=== PATIENT | male | born 1955 | race Caucasian/White ===

== ENCOUNTER 2018-06-12 07:06 | Day surgery (SDC) | payer BC ==
[~2018-06-12 07:06] MED LIST: Lactated Ringers 1,000 ML IV SCH
[2018-06-12] MEDS ORDERED: Bupivacaine 0.5% 10 ML SDV ONE (07:27)
[2018-06-12] MEDS ORDERED: Acetaminophen/HYDROcodone 325-5 MG Tab PO PRN (08:00)
[2018-06-12] MEDS ORDERED: ceFAZolin 2 GM in Premix Bag 1 BAG IV SCH (08:00)
--- NOTE | 2018-06-12 08:05 | PCM.PREANE ---
Preanesthetic Assessment - Anesthesia/Transfusion/Family Hx Anesthesia History: Prior Anesthesia Reaction Other Type of Anesthesia Reaction Comment: "N&V and headache after anesthesia" Transfusion History: No Prior Transfusion(s) Intubation History: Unknown - Physical Assessment O2 Sat by Pulse Oximetry: 96 Respiratory Rate: 16 Vital Signs: Last Vital Signs Temp 96.8 F 06/12/18 07:27 Pulse 79 06/12/18 07:27 Resp 16 06/12/18 07:27 BP 174/100 H 06/12/18 07:27 Pulse Ox 96 06/12/18 07:27 Height: 5 ft 9 in Weight: 220 lb - Allergies Allergies/Adverse Reactions: Allergies Allergy/AdvReac Type Severity Reaction Status Date / Time No Known Allergies Allergy Verified 06/07/18 08:58 PreAnesthesia Questionnaire HEENT History: Reports: Other (See Below) Other HEENT History: wears glasses Cardiovascular History: Reports: Hypertension Gastrointestinal History: Reports: None Genitourinary History: Reports: None Musculoskeletal History: Reports: Arthritis, Osteoarthritis Psychiatric History: Reports: None Endocrine/Metabolic History: Reports: Hypothyroidism, Obesity/BMI 30+ Hematologic History: Reports: None Immunologic History: Reports: None Oncologic (Cancer) History: Reports: None Dermatologic History: Reports: None - Past Surgical History Head Surgeries/Procedures: Reports: None HEENT Surgical History: Reports: Naso-Sinus Surgery GI Surgical History: Reports: Cholecystectomy Male Surgical History: Reports: Vasectomy Musculoskeletal Surgical History: Reports: Knee Replacement Other Musculoskeletal Surgeries/Procedures:: partial left knee replacement, total rt knee replacement, Dermatological Surgical History: Reports: Other (See Below) - SUBSTANCE USE Smoking Status *Q: Former Smoker Recreational Drug Use History: No - HOME MEDS Home Medications: Home Meds Anastrozole [Arimidex] 1 mg PO ASDIRECTED 03/17/18 [History] Aspirin 325 mg PO ASDIRECTED PRN 03/17/18 [History] Cholecalciferol (Vitamin D3) [Vitamin D3] 1 tab PO DAILY 03/17/18 [History] Fish Oil/[place]-3 Fatty Acids [Fish Oil 1,000 MG] 1 tab PO DAILY 03/17/18 [ History] Glucosamine HCl [Glucosamine] 1 tab PO DAILY 03/17/18 [History] Losartan Potassium 100 mg PO DAILY 03/17/18 [History] Lutein 20 mg PO DAILY 03/17/18 [History] Metoprolol Succinate 50 mg PO BEDTIME 03/17/18 [History] Naproxen Sodium [Aleve] 1 tab PO TID PRN 03/17/18 [History] Thyroid [[place] Thyroid] 60 mg PO DAILY 03/17/18 [History] hydroCHLOROthiazide [Hydrochlorothiazide] 12.5 mg PO DAILY 03/17/18 [History] Testosterone Cypionate 1 injection IM ASDIRECTED 06/07/18 [History] - CURRENT (IN HOUSE) MEDS Current Meds: Current Medications Hydrocodone Bitart/Acetaminophen ([place] 325-5 Mg) 1 - 2 tab PO Q4H PRN PRN Reason: Pain Cefazolin Sodium/Dextrose 2 gm (/ Premix) 50 mls @ 100 mls/hr IV ONCALL [facility] ANTONIO Lactated Ringer's (Ringers, Lactated) 1,000 mls @ 100 mls/hr IV ASDIRECTED [facility] Last Admin: 06/12/18 07:32 Dose: 100 mls/hr Discontinued Medications Bupivacaine HCl (Sensorcaine-Mpf 0.5%) Confirm Administered Dose 10 ml .ROUTE .STK-MED ONE Stop: 06/12/18 07:28
--- NOTE | 2018-06-12 08:29 | PCM.PREANE ---
Preanesthetic Assessment - Anesthesia/Transfusion/Family Hx Anesthesia History: Prior Anesthesia Reaction Type of Anesthesia Reaction: Excessive Nausea/Vomiting Other Type of Anesthesia Reaction Comment: "N&V and headache after anesthesia" Family History of Anesthesia Reaction: No Transfusion History: No Prior Transfusion(s) Intubation History: Unknown - Review of Systems General: No Symptoms Pulmonary: No Symptoms Cardiovascular: No Symptoms Gastrointestinal: No Symptoms Neurological: No Symptoms Other: Reports: None - Physical Assessment NPO Status Date: 06/11/18 O2 Sat by Pulse Oximetry: 96 Respiratory Rate: 16 Vital Signs: Last Vital Signs Temp 96.8 F 06/12/18 07:27 Pulse 79 06/12/18 07:27 Resp 16 06/12/18 07:27 BP 174/100 H 06/12/18 07:27 Pulse Ox 96 06/12/18 07:27 Height: 5 ft 9 in Weight: 99.79 kg ASA Class: 2 Mental Status: Alert & Oriented x3 Airway Class: Mallampati = 1 Dentition: Reports: Normal Dentition ROM/Head Extension: Full Lungs: Clear to Auscultation, Normal Respiratory Effort Cardiovascular: Regular Rate, Regular Rhythm - Allergies Allergies/Adverse Reactions: Allergies Allergy/AdvReac Type Severity Reaction Status Date / Time No Known Allergies Allergy Verified 06/07/18 08:58 - Blood Blood Available: No - Anesthesia Plan Pre-Op Medication Ordered: None - Acknowledgements Anesthesia Type Planned: General Anesthesia Pt an Appropriate Candidate for the Planned Anesthesia: Yes Alternatives and Risks of Anesthesia Discussed w Pt/Guardian: Yes Pt/Guardian Understands and Agrees with Anesthesia Plan: Yes Additional Comments: PMH: hx of ponv- none after last surgery-anesthesia record pulled for review, htn, thyroid and testosterone replacement PLAN: [email or web address] PreAnesthesia Questionnaire HEENT History: Reports: Other (See Below) Other HEENT History: wears glasses Cardiovascular History: Reports: Hypertension Gastrointestinal History: Reports: None Genitourinary History: Reports: None Musculoskeletal History: Reports: Arthritis, Osteoarthritis Psychiatric History: Reports: None Endocrine/Metabolic History: Reports: Hypothyroidism, Obesity/BMI 30+ Hematologic History: Reports: None Immunologic History: Reports: None Oncologic (Cancer) History: Reports: None Dermatologic History: Reports: None - Past Surgical History Head Surgeries/Procedures: Reports: None HEENT Surgical History: Reports: Naso-Sinus Surgery GI Surgical History: Reports: Cholecystectomy Male Surgical History: Reports: Vasectomy Musculoskeletal Surgical History: Reports: Knee Replacement Other Musculoskeletal Surgeries/Procedures:: partial left knee replacement, total rt knee replacement, Dermatological Surgical History: Reports: Other (See Below) - SUBSTANCE USE Smoking Status *Q: Former Smoker Recreational Drug Use History: No - HOME MEDS Home Medications: Home Meds Anastrozole [Arimidex] 1 mg PO ASDIRECTED 03/17/18 [History] Aspirin 325 mg PO ASDIRECTED PRN 03/17/18 [History] Cholecalciferol (Vitamin D3) [Vitamin D3] 1 tab PO DAILY 03/17/18 [History] Fish Oil/[place]-3 Fatty Acids [Fish Oil 1,000 MG] 1 tab PO DAILY 03/17/18 [ History] Glucosamine HCl [Glucosamine] 1 tab PO DAILY 03/17/18 [History] Losartan Potassium 100 mg PO DAILY 03/17/18 [History] Lutein 20 mg PO DAILY 03/17/18 [History] Metoprolol Succinate 50 mg PO BEDTIME 03/17/18 [History] Naproxen Sodium [Aleve] 1 tab PO TID PRN 03/17/18 [History] Thyroid [[place] Thyroid] 60 mg PO DAILY 03/17/18 [History] hydroCHLOROthiazide [Hydrochlorothiazide] 12.5 mg PO DAILY 03/17/18 [History] Testosterone Cypionate 1 injection IM ASDIRECTED 06/07/18 [History] - CURRENT (IN HOUSE) MEDS Current Meds: Current Medications Hydrocodone Bitart/Acetaminophen ([place] 325-5 Mg) 1 - 2 tab PO Q4H PRN PRN Reason: Pain Cefazolin Sodium/Dextrose 2 gm (/ Premix) 50 mls @ 100 mls/hr IV ONCALL [facility] Lactated Ringer's (Ringers, Lactated) 1,000 mls @ 100 mls/hr IV ASDIRECTED [facility] Last Admin: 06/12/18 07:32 Dose: 100 mls/hr Discontinued Medications Bupivacaine HCl (Sensorcaine-Mpf 0.5%) Confirm Administered Dose 10 ml .ROUTE .STK-MED ONE Stop: 06/12/18 07:28
[2018-06-12] MEDS ORDERED: Lidocaine 2% 5 ML SDV ONE (08:40)
[2018-06-12] MEDS ORDERED: Ondansetron 4 MG/2 ML SDV ONE (08:40)
[2018-06-12] MEDS ORDERED: Propofol 200 MG/20 ML SDV ONE (08:41)
[2018-06-12] MEDS ORDERED: fentaNYL 250 MCG/5 ML SDV ONE (08:41)
[2018-06-12] MEDS ORDERED: Midazolam 1 MG/ML 2 ML SDV ONE (08:41)
[2018-06-12] MEDS ORDERED: diphenhydrAMINE 50 MG/ML SDV ONE (08:42)
[2018-06-12] MEDS ORDERED: ceFAZolin/Dextrose,Iso-Osmotic 2 GM/50 ML Duplex Bag IV ONE (08:42)
[2018-06-12] MEDS ORDERED: Ketorolac 30 MG/ML SDV ONE (08:42)
--- NOTE | 2018-06-12 09:39 | PCM.OPNOTE ---
- General Post-Op/Procedure Note Date of Surgery/Procedure: 06/12/18 Operative Procedure(s): Excision lipoma left shoulder Post-Op Diagnosis: Lipoma left shoulder Anesthesia Technique: General LMA Primary Surgeon: Micaela Lala Bus Dispatcher Interstate: Amy Collado Bus Dispatcher Interstate: Ann Yin in mLs: 10 Condition: Good Free Text/Narrative:: #[id number]
[2018-06-12] MEDS ORDERED: fentaNYL 100 MCG/2 ML SDV IVPUSH PRN (10:03)
--- NOTE | 2018-06-12 10:17 | PCM.POSTAN ---
POST ANESTHESIA ASSESSMENT - MENTAL STATUS Mental Status: Alert, Oriented - RESPIRATORY Respiratory Status: Respiratory Rate WNL - CARDIOVASCULAR CV Status: Pulse Rate WNL - GASTROINTESTINAL GI Status: No Symptoms - PAIN Pain Score: 0 - POST OP HYDRATION Hydration Status: Adequate & Stable - OBSERVATIONS Free Text/Narrative:: The patient tolerated the procedure well. There were no apparent anesthetic complications at this time. Discharge home per criteria.
--- NOTE | 2018-06-12 11:45 | PCM48HPAN ---
Post Anesthesia Note - EVALUATION WITHIN 48HRS OF ANESTHETIC Vital Signs in Normal Range: Yes Patient Participated in Evaluation: Yes Respiratory Function Stable: Yes Airway Patent: Yes Cardiovascular Function Stable: Yes Hydration Status Stable: Yes Pain Control Satisfactory: Yes Nausea and Vomiting Control Satisfactory: Yes Mental Status Recovered: Yes Resp Rate: 16
--- NOTE | 2018-06-12 15:34 | OR ---
SURGEON: Micaela Lala MD DATE OF PROCEDURE: 06/12/2018 PREOPERATIVE DIAGNOSIS: Left anterior shoulder lipoma. POSTOPERATIVE DIAGNOSIS: Left anterior shoulder lipoma. PROCEDURE: Excision lipoma, left anterior shoulder. ASSISTANTS: 1. Amy Collado PA-C. 2. ROMY Moura. ANESTHESIA: General. ESTIMATED BLOOD LOSS: 5 mL. TOURNIQUET TIME: Zero minutes. COMPLICATIONS: None. DVT PROPHYLAXIS: Not indicated. IMPLANTS USED: None. BRIEF HISTORY: David is a 62-year-old male who has noticed a prominence along the anterior aspect of his shoulder. He has had multiple other lipomas removed from other parts of his body in the past. Upon examination, I did recommend surgical excision. The risks and goals of the procedure were discussed with the patient and were documented preoperatively. He agreed to proceed. DESCRIPTION OF PROCEDURE: The patient was properly identified and brought to the operating room. He was transferred from the OR cart and placed on the operating room table in supine position. General anesthesia was administered. After adequate anesthesia was obtained, the head of the bed was elevated approximately 30 degrees. The left upper extremity and anterior shoulder were prepped in standard fashion using ChloraPrep solution. It was then sterilely draped. A time-out was performed to ensure correct site and procedure. Preoperative antibiotics were given. The surgical site had been marked preoperatively. An incision was made centered over the lipoma. Subcutaneous tissues were incised. A small portion of the deltoid muscle overlaid the lipoma. This was incised and the deltoid muscle was retracted. The lipoma was easily identified. It shelled out of the deltoid muscle quite easily and no remaining fat remained. The lipoma was sent for pathologic evaluation. The wound was then copiously irrigated with saline solution. A loose Vicryl suture was used to re- approximate the muscle belly. Subcutaneous tissues were closed with 2-0 Vicryl, and the skin was closed with a running 4-0 Monocryl suture. Steri-Strips and Benzoin were applied. Xeroform gauze was placed over the wound and a bulky dressing was applied. He was awakened from his anesthetic and transferred back to the operating room cart. He was brought to recovery room in stable condition. All needle and sponge counts were correct. EFRAIN / KATELYNN /[id number]
== END 2018-06-12 11:03 | disposition home or self-care (01) ==
LOC: MW.SDS 07:06
PROVIDERS: ATTEND Orthopaedic Surgery
DX: D17.9 Benign lipomatous neoplasm, unspecified (principal); I10 Essential (primary) hypertension; E03.9 Hypothyroidism, unspecified; E66.9 Obesity, unspecified; Z87.891 Personal history of nicotine dependence; Z79.899 Other long term (current) drug therapy
CPT/HCPCS: 23076; 88304; J0690; J1200; J1885; J2001; J2250; J2405; J2704; J3010; J3490; J7120; 00400

== ENCOUNTER 2018-08-21 07:21 | Inpatient (IN) | payer BC ==
[~2018-08-21 07:21] MED LIST changes: +Famotidine 20 MG/2 ML SDV IVPUSH SCH; -Lactated Ringers 1,000 ML IV SCH; +Ropivacaine 49.25 ML, Ketorolac 30 MG, EPINEPHrine 0.5 MG, cloNIDine 80 MCG in Sodium C... INJECT SCH; +Scopolamine 1.5 MG Transdermal Patch TRDERM SCH; +Tranexamic Acid 2,000 MG in Sodium Chloride 0.9% 100 ML IV ONE
[2018-08-21] MEDS ORDERED: ceFAZolin 2 GM in Premix Bag 1 BAG IV SCH (08:00)
[2018-08-21] MEDS: Lactated Ringers 1,000 ML IV SCH ×3 (08:00→23:54)
[2018-08-21] MEDS: Acetaminophen 1,000 MG in Premix Bag 1 BAG IV SCH ×4 (08:08→20:52)
--- NOTE | 2018-08-21 08:44 | PCM.PREANE ---
Preanesthetic Assessment - Anesthesia/Transfusion/Family Hx Anesthesia History: Prior Anesthesia Reaction Other Type of Anesthesia Reaction Comment: "N&V and headache after anesthesia" Transfusion History: No Prior Transfusion(s) Intubation History: Unknown - Review of Systems General: No Symptoms Pulmonary: No Symptoms Cardiovascular: No Symptoms Gastrointestinal: No Symptoms Neurological: No Symptoms Other: Reports: None - Physical Assessment O2 Sat by Pulse Oximetry: 96 Respiratory Rate: 16 Vital Signs: Last Vital Signs Temp 36.0 C 08/21/18 08:00 Pulse 78 08/21/18 08:00 Resp 16 08/21/18 08:00 BP 124/73 08/21/18 08:00 Pulse Ox 96 08/21/18 08:00 Height: 1.75 m Weight: 99.79 kg ASA Class: 2 Airway Class: Mallampati = 3 Dentition: Reports: Normal Dentition Thyro-Mental Finger Breadths: 3 Mouth Opening Finger Breadths: 3 ROM/Head Extension: Full Lungs: Clear to Auscultation, Normal Respiratory Effort Cardiovascular: Regular Rate, Regular Rhythm - Allergies Allergies/Adverse Reactions: Allergies Allergy/AdvReac Type Severity Reaction Status Date / Time No Known Allergies Allergy Verified 08/16/18 07:58 - Anesthesia Plan Pre-Op Medication Ordered: Other (SCOPOLAMINE PATCH ) - Acknowledgements Anesthesia Type Planned: Spinal (back pain, and possible conversion to general anesthesia discussed if surgery is prolonged or spinal fails. ) Pt an Appropriate Candidate for the Planned Anesthesia: Yes Alternatives and Risks of Anesthesia Discussed w Pt/Guardian: Yes Pt/Guardian Understands and Agrees with Anesthesia Plan: Yes PreAnesthesia Questionnaire HEENT History: Reports: Allergic Rhinitis, Hard of Hearing (hearing loss, left ear. not evaluated.), Other (See Below) Other HEENT History: wears glasses Cardiovascular History: Reports: Hypertension, Other (See Below) ("history of abnormal stress test, ef 50%, no ischemia". ekg: nsr with probable left atrial enlargement. Repeat TTE shows EF 55-50%. Patient was evaluated and cleared by cardiology.) Respiratory History: Reports: None, Other (See Below) (cxr. no acute cardiopulmonary disease) Gastrointestinal History: Reports: None Genitourinary History: Reports: Chronic Renal Insuffiency (Chronic Kidney Disease Stage 3) Musculoskeletal History: Reports: Arthritis, Osteoarthritis Neurological History: Reports: None Psychiatric History: Reports: None Endocrine/Metabolic History: Reports: Hypothyroidism, Obesity/BMI 30+ Hematologic History: Reports: None Immunologic History: Reports: None Oncologic (Cancer) History: Reports: None Dermatologic History: Reports: None - Past Surgical History Head Surgeries/Procedures: Reports: None HEENT Surgical History: Reports: Naso-Sinus Surgery Cardiovascular Surgical History: Reports: None Respiratory Surgical History: Reports: None GI Surgical History: Reports: Cholecystectomy Male Surgical History: Reports: Vasectomy Endocrine Surgical History: Reports: None Neurological Surgical History: Reports: None Musculoskeletal Surgical History: Reports: Knee Replacement Other Musculoskeletal Surgeries/Procedures:: hillary TKA Oncologic Surgical History: Reports: None Dermatological Surgical History: Reports: Other (See Below) Other Surgical History Comment: lipoma removals by dr siegel - SUBSTANCE USE Smoking Status *Q: Former Smoker Days Per Week of Alcohol Use: 1 (etoh "occasional") Recreational Drug Use History: No - HOME MEDS Home Medications: Home Meds Anastrozole [Arimidex] 1 mg PO ASDIRECTED 03/17/18 [History] Cholecalciferol (Vitamin D3) [Vitamin D3] 1 tab PO DAILY 03/17/18 [History] Fish Oil/[place]-3 Fatty Acids [Fish Oil 1,000 MG] 1 tab PO DAILY 03/17/18 [ History] Glucosamine HCl [Glucosamine] 1 tab PO DAILY 03/17/18 [History] Losartan Potassium 100 mg PO DAILY 03/17/18 [History] Lutein 20 mg PO DAILY 03/17/18 [History] Metoprolol Succinate 50 mg PO BEDTIME 03/17/18 [History] Naproxen Sodium [Aleve] 1 tab PO TID PRN 03/17/18 [History] Thyroid [[place] Thyroid] 60 mg PO DAILY 03/17/18 [History] hydroCHLOROthiazide [Hydrochlorothiazide] 12.5 mg PO DAILY 03/17/18 [History] Testosterone Cypionate 1 injection IM ASDIRECTED 06/07/18 [History] Aspirin [Lo-Dose Aspirin EC] 81 mg PO DAILY 08/16/18 [History] - CURRENT (IN HOUSE) MEDS Current Meds: Current Medications Famotidine (Pepcid) 40 mg IVPUSH ONARRIVE [facility]CO ANTONIO Last Admin: 08/21/18 08:25 Dose: 40 mg Acetaminophen 1,000 mg/ Premix 100 mls @ 400 mls/hr IV ONARRIVE [facility] ANTONIO Last Admin: 08/21/18 08:08 Dose: 400 mls/hr Cefazolin Sodium/Dextrose 2 gm (/ Premix) 50 mls @ 100 mls/hr IV ONCALL [facility] Ropivacaine 49.25 ml/Ketorolac Tromethamine 30 mg/Epinephrine HCl 0.5 mg/ Clonidine HCl 80 mcg/ Sodium Chloride 100 mls @ 50 mls/sec INJECT ASDIRECTED [facility] Lactated Ringer's (Ringers, Lactated) 1,000 mls @ 100 mls/hr IV ASDIRECTED [facility] Last Admin: 08/21/18 08:00 Dose: 100 mls/hr Scopolamine (Transderm-Scop) 1.5 mg TRDERM ONARRIVE [facility] Last Admin: 08/21/18 08:21 Dose: 1.5 mg Discontinued Medications Tranexamic Acid 2,000 mg/ (Sodium Chloride) 120 mls @ 600 mls/hr IV ASDIRECTED ONE Stop: 08/21/18 06:11
[2018-08-21] MEDS ORDERED: ceFAZolin/Dextrose,Iso-Osmotic 2 GM/50 ML Duplex Bag IV ONE (09:12)
[2018-08-21] MEDS ORDERED: fentaNYL 100 MCG/2 ML SDV ONE (09:12)
[2018-08-21] MEDS ORDERED: Propofol 200 MG/20 ML SDV ONE ×3 (09:12→11:27)
--- NOTE | 2018-08-21 09:45 | PCM.OPNOTE ---
- General Post-Op/Procedure Note Date of Surgery/Procedure: 08/21/18 Operative Procedure(s): Revision left TKA Post-Op Diagnosis: painful left unicompartmental medial arthroplasty knee Anesthesia Technique: Moderate Sedation, Spinal Primary Surgeon: Micaela Lala Drafter Electronic: Amy Collado Drafter Electronic: Ann Yin EBL in mLs: 50 Condition: Good Free Text/Narrative:: tt=see nursing record #[id number]
[2018-08-21] MEDS ORDERED: Midazolam 1 MG/ML 2 ML SDV ONE (09:58)
[2018-08-21] MEDS ORDERED: Phenylephrine/Normal Saline 100 MCG/ML 10 ML Syringe ONE (10:10)
[2018-08-21] MEDS ORDERED: ePHEDrine 50 MG/ML SDV ONE (10:25)
[2018-08-21] MEDS ORDERED: Ondansetron 4 MG/2 ML SDV ONE (10:37)
[2018-08-21] MEDS ORDERED: EPINEPHrine 1:10,000 1 MG/10 ML Syringe IVPUSH PRN (11:06)
[2018-08-21] MEDS ORDERED: Naloxone 0.4 MG/ML Syringe IVPUSH PRN (11:06)
[2018-08-21] MEDS ORDERED: Atropine 0.1 MG/ML 10 ML Syringe IVPUSH PRN ×2 (11:06)
[2018-08-21] MEDS ORDERED: fentaNYL 100 MCG/2 ML SDV IVPUSH PRN (11:06)
[2018-08-21] MEDS ORDERED: 50% Dextrose in Water 50 ML Syringe IVPUSH PRN (11:06)
[2018-08-21] MEDS ORDERED: Albuterol 0.083% 2.5 MG/3 ML Neb Soln NEB PRN (11:06)
[2018-08-21] MEDS ORDERED: Aluminum Hydroxide/Magnesium Hydroxide/Simethicone Susp 30 ML Cup PO PRN (11:38)
[2018-08-21] MEDS ORDERED: Docusate Sodium 100 MG Cap PO PRN (11:38)
[2018-08-21] MEDS ORDERED: diphenhydrAMINE 25 MG Cap PO PRN (11:38)
[2018-08-21] MEDS ORDERED: Bisacodyl 10 MG Supp RECTAL PRN (11:38)
[2018-08-21] MEDS ORDERED: Morphine PF 30 MG/30 ML PCA Vial IV PRN (11:38)
[2018-08-21] MEDS ORDERED: Ondansetron 4 MG/2 ML SDV IVPUSH PRN (11:38)
[2018-08-21] MEDS ORDERED: Sodium Chloride 0.9% 10 ML Syringe FLUSH PRN (11:41)
[2018-08-21] MEDS ORDERED: Sodium Chloride 0.9% 2.5 ML Syringe FLUSH PRN (11:41)
[2018-08-21] MEDS ORDERED: Anastrozole 1 MG Tab PO SCH (11:45)
--- NOTE | 2018-08-21 12:48 | PCM.POSTAN ---
POST ANESTHESIA ASSESSMENT - MENTAL STATUS Mental Status: Alert, Oriented - RESPIRATORY Respiratory Status: Respiratory Rate WNL, Airway Patent, O2 Saturation Stable - CARDIOVASCULAR CV Status: Pulse Rate WNL, Blood Pressure Stable - GASTROINTESTINAL GI Status: No Symptoms - PAIN Pain Score: 0 - POST OP HYDRATION Hydration Status: Adequate & Stable - OBSERVATIONS Free Text/Narrative:: The patient tolerated the procedure well. There were no apparent anesthetic complications at this time. Discharge to floor per criteria.
--- NOTE | 2018-08-21 13:45 | PCM.CONS ---
<Marita Aguilar M - Last Filed: 08/21/18 13:40> H&P History of Present Illness - General Date of Service: 08/21/18 Admit Problem/Dx: Admission Diagnosis/Problem Admission Diagnosis/Problem Knee pain Source of Information: Patient, Significant Other ( at bedside) History Limitations: Reports: No Limitations - History of Present Illness Initial Comments - Free Text/Narative: This 62 year old male with pmh of HTN presented to for L TKA with Dr Lala. Hospitalist service consulted for medical management for HTN. He recently arrived to Med?surg unit, he is alert and oriented, doing well. is at bedside. He denies chest pain or SOB. NO other concerns. No pain currently to knee. Slowly regaining feeling to legs. He was cleared by cardiology prior to surgery due to abnormal stress test in the past. Stress test and ECHO was repeated with Dr Rock, cardiology in [place]. Per reports, evaluations were nearly unremarkable, Some LVH noted on ECHO. EF 55-60%. He denies ever having chest pain or SOB. He denies DAKOTAH. Reports he has also been told his hgb is elevated, cardiology told him to drink more fluids or donate blood. He reports he is NOT diabetic. He takes Metformin for weight loss, this was prescribed from a bariatric doctor. PCP, Paulette Bauer EARLY CHILDHOOD COORDINATOR Cardiology, Dr Rock. - Related Data Allergies/Adverse Reactions: Allergies Allergy/AdvReac Type Severity Reaction Status Date / Time No Known Allergies Allergy Verified 08/16/18 07:58 Home Medications: Home Meds Anastrozole [Arimidex] 1 mg PO Q14D 03/17/18 [History] Cholecalciferol (Vitamin D3) [Vitamin D3] 5,000 unit PO DAILY 03/17/18 [History] Fish Oil/[place]-3 Fatty Acids [Fish Oil 1,000 MG] 1 gm PO DAILY 03/17/18 [History ] Glucosamine HCl [Glucosamine] 1 tab PO DAILY 03/17/18 [History] Losartan Potassium 100 mg PO DAILY 03/17/18 [History] Lutein 20 mg PO DAILY 03/17/18 [History] Metoprolol Succinate 50 mg PO BEDTIME 03/17/18 [History] Naproxen Sodium [Aleve] 220 mg PO TID PRN 03/17/18 [History] Thyroid [Lilly Thyroid] 60 mg PO DAILY 03/17/18 [History] hydroCHLOROthiazide [Hydrochlorothiazide] 12.5 mg PO DAILY 03/17/18 [History] Testosterone Cypionate 1 injection IM ASDIRECTED 06/07/18 [History] Aspirin [Lo-Dose Aspirin EC] 81 mg PO DAILY 08/16/18 [History] metFORMIN HCl [Metformin HCl] 500 mg PO BIDMEALS 08/21/18 [History] Past Medical History HEENT History: Reports: Allergic Rhinitis, Hard of Hearing (hearing loss, left ear. not evaluated.), Other (See Below) Other HEENT History: wears glasses Cardiovascular History: Reports: Hypertension Respiratory History: Reports: None. Denies: Asthma, COPD Gastrointestinal History: Reports: None. Denies: GERD, GI Bleed Genitourinary History: Reports: Chronic Renal Insuffiency (Chronic Kidney Disease Stage 3) Musculoskeletal History: Reports: Arthritis, Osteoarthritis Neurological History: Reports: None Psychiatric History: Reports: None Endocrine/Metabolic History: Reports: Hypothyroidism, Obesity/BMI 30+ Hematologic History: Reports: None Immunologic History: Reports: None Oncologic (Cancer) History: Reports: None Dermatologic History: Reports: None - Past Surgical History Head Surgeries/Procedures: Reports: None HEENT Surgical History: Reports: Naso-Sinus Surgery Cardiovascular Surgical History: Reports: None Respiratory Surgical History: Reports: None GI Surgical History: Reports: Cholecystectomy Male Surgical History: Reports: Vasectomy Endocrine Surgical History: Reports: None Neurological Surgical History: Reports: None Musculoskeletal Surgical History: Reports: Knee Replacement (R) Other Musculoskeletal Surgeries/Procedures:: hillary TKA Oncologic Surgical History: Reports: None Dermatological Surgical History: Reports: Other (See Below) Other Surgical History Comment: lipoma removals by dr lala Social & Family History - Tobacco Use Smoking Status *Q: Former Smoker Years of Tobacco use: 10 Used Tobacco, but Quit: Yes Month/Year Tobacco Last Used: quit smoking over 20 years ago - Alcohol Use Alcohol Use History: No Days Per Week of Alcohol Use: 1 (etoh "occasional") - Recreational Drug Use Recreational Drug Use: No - Living Situation & Occupation Living situation: Reports: Occupation: Employed H&P Review of Systems - Review of Systems: Review Of Systems: See Below General: Reports: No Symptoms. Denies: Fever, Chills, Malaise, Weakness HEENT: Reports: No Symptoms. Denies: Contact Lenses, Headaches, Vertigo Pulmonary: Reports: No Symptoms. Denies: Shortness of Breath Cardiovascular: Reports: No Symptoms. Denies: Chest Pain, Orthopnea, Edema Gastrointestinal: Reports: No Symptoms. Denies: Abdominal Pain, Diarrhea, Decreased Appetite, Distension, Nausea, Vomiting Genitourinary: Reports: No Symptoms. Denies: Dysuria, Frequency, Burning Musculoskeletal: Reports: No Symptoms. Denies: Joint Pain Skin: Reports: No Symptoms Psychiatric: Reports: No Symptoms Neurological: Reports: No Symptoms Hematologic/Lymphatic: Reports: No Symptoms Immunologic: Reports: No Symptoms Exam - Exam Exam: See Below - Vital Signs Vital Signs: Last Vital Signs Temp 97.7 F 08/21/18 12:06 Pulse 76 08/21/18 12:41 Resp 14 08/21/18 12:41 BP 117/73 08/21/18 12:41 Pulse Ox 93 L 08/21/18 12:41 Weight: 99.79 kg - Exam General: Alert, Oriented, Cooperative HEENT: Conjunctiva Clear, Mucosa Moist & [place], Posterior Pharynx Clear Lungs: Clear to Auscultation, Normal Respiratory Effort Cardiovascular: Regular Rate, Regular Rhythm, Normal S1, Normal S2. No: Systolic Murmur GI/Abdominal Exam: Normal Bowel Sounds, Soft, Non-Tender, No Mass Back Exam: Normal Inspection, Full Range of Motion Extremities: Normal Inspection, Normal Range of Motion, Non-Tender, No Pedal Edema, Normal Capillary Refill Neuro Extensive - Mental Status: Alert, Oriented x3 Neuro Extensive - Motor, Sensory, Reflexes: CN II-XII Intact Psychiatric: Alert, Normal Affect, Normal Mood - Patient Data Lab Results Last 24 hrs: Laboratory Results - last 24 hr 08/21/18 08/21/18 Range/Units 08:08 13:08 WBC 5.93 (4.0-11.0) K/uL RBC 5.38 (4.50-5.90) M/uL Hgb 17.2 H (13.0-17.0) g/dL Hct 51.9 H (38.0-50.0) % MCV 96.5 (80.0-98.0) fL MCH 32.0 (27.0-32.0) pg MCHC 33.1 (31.0-37.0) g/dL RDW Std Deviation 46.2 (28.0-62.0) fl RDW Coeff of Nina 13 (11.0-15.0) % Plt Count 165 (150-400) K/uL MPV 10.40 (7.40-12.00) fL Neut % (Auto) 54.4 (48.0-80.0) % Lymph % (Auto) 35.2 (16.0-40.0) % [place] % (Auto) 9.3 (0.0-15.0) % Eos % (Auto) 0.8 (0.0-7.0) % Baso % (Auto) 0.3 (0.0-1.5) % Neut # (Auto) 3.2 (1.4-5.7) K/uL Lymph # (Auto) 2.1 (0.6-2.4) K/uL [place] # (Auto) 0.6 (0.0-0.8) K/uL Eos # (Auto) 0.1 (0.0-0.7) K/uL Baso # (Auto) 0.0 (0.0-0.1) K/uL Nucleated RBC % 0.0 /100WBC Nucleated RBCs # 0 K/uL Blood Type A POSITIVE Antibody Screen NEGATIVE Result Diagrams: 08/21/18 13:08 Consult PN Assessment/Plan Procedures: Procedures CARDIOVASCULAR STRESS TEST (08/03/18) EXC BACK LES SC 3 CM/> (03/22/18) EXC SHOULDER CLAY DEEP < 5 CM (06/12/18) HT MUSCLE IMAGE SPECT MULT (08/03/18) TISSUE EXAM BY PATHOLOGIST (06/12/18) US EXAM CHEST (04/10/18) X-RAY EXAM KNEE 4 OR MORE (07/13/18) X-RAY EXAM OF SHOULDER (03/30/18) (1) S/P total knee arthroplasty SNOMED Code(s): 6142503504468, 008440773, 0614848218765 Code(s): Z96.659 - PRESENCE OF UNSPECIFIED ARTIFICIAL KNEE JOINT Current Visit: Yes Qualifiers: Laterality: left Qualified Code(s): Z96.652 - Presence of left artificial knee joint (2) HTN (hypertension) SNOMED Code(s): 45846280 Code(s): I10 - ESSENTIAL (PRIMARY) HYPERTENSION Current Visit: Yes Qualifiers: Hypertension type: essential hypertension Qualified Code(s): I10 - Essential (primary) hypertension Problem List Initiated/Reviewed/Updated: Yes My Orders Last 24 Hours: My Active Orders 08/21/18 11:56 Blood Glucose Check, Bedside [RC] TIDAC 08/21/18 13:08 BMP [BASIC METABOLIC PANEL,BMP] [CHEM] Routine 08/21/18 17:00 Insulin Aspart [NovoLOG] See Protocol SUBCUT TIDAC Plan: This 62 year old male admitted with L TKA with Dr Lala. Hospitalist consulted for medical management for HTN 1. S/P L TKA: Orders per Orthopedics 2. HTN: Stable. Continue Metoprolol, Losartan and HCTZ. Monitor electrolytes. VTE prophylaxis: Would recommend with deemed appropriate by Orthopedics <Zain Marie - Last Filed: 08/21/18 15:51> H&P History of Present Illness - General Admit Problem/Dx: Admission Diagnosis/Problem Admission Diagnosis/Problem Knee pain - History of Present Illness Initial Comments - Free Text/Narative: I have seen and examined the patient independently of Marita Aguilar CNP. I have discussed the case with her. I have reviewed and agreed with the plan of treatment as outlined for this patient by her. Please see orders. Right TKA 2010. Exam - Vital Signs Vital Signs: Last Vital Signs Temp 36.5 C 08/21/18 12:06 Pulse 76 08/21/18 12:41 Resp 14 08/21/18 12:41 BP 117/73 08/21/18 12:41 Pulse Ox 93 L 08/21/18 12:41 - Patient Data Lab Results Last 24 hrs: Laboratory Results - last 24 hr 08/21/18 08/21/18 08/21/18 Range/Units 08:08 13:08 13:08 WBC 5.93 (4.0-11.0) K/uL RBC 5.38 (4.50-5.90) M/uL Hgb 17.2 H (13.0-17.0) g/dL Hct 51.9 H (38.0-50.0) % MCV 96.5 (80.0-98.0) fL MCH 32.0 (27.0-32.0) pg MCHC 33.1 (31.0-37.0) g/dL RDW Std Deviation 46.2 (28.0-62.0) fl RDW Coeff of Nina 13 (11.0-15.0) % Plt Count 165 (150-400) K/uL MPV 10.40 (7.40-12.00) fL Neut % (Auto) 54.4 (48.0-80.0) % Lymph % (Auto) 35.2 (16.0-40.0) % [place] % (Auto) 9.3 (0.0-15.0) % Eos % (Auto) 0.8 (0.0-7.0) % Baso % (Auto) 0.3 (0.0-1.5) % Neut # (Auto) 3.2 (1.4-5.7) K/uL Lymph # (Auto) 2.1 (0.6-2.4) K/uL [place] # (Auto) 0.6 (0.0-0.8) K/uL Eos # (Auto) 0.1 (0.0-0.7) K/uL Baso # (Auto) 0.0 (0.0-0.1) K/uL Nucleated RBC % 0.0 /100WBC Nucleated RBCs # 0 K/uL Sodium 139 (136-148) mmol/L Potassium 4.6 (3.5-5.1) mmol/L Chloride 104 (98-107) mmol/L Carbon Dioxide 31.4 (21.0-32.0) mmol/L BUN 14 (7.0-18.0) mg/dL Creatinine 1.4 H (0.8-1.3) mg/dL Est Cr Clr Drug Dosing 56.11 mL/min Estimated GFR (MDRD) 51.7 ml/min Glucose 107 H (74-106) mg/dL Calcium 8.2 L (8.5-10.1) mg/dL Blood Type A POSITIVE Antibody Screen NEGATIVE Result Diagrams: 08/21/18 13:08 08/21/18 13:08 Consult PN Assessment/Plan Procedures: Procedures CARDIOVASCULAR STRESS TEST (08/03/18) EXC BACK LES SC 3 CM/> (03/22/18) EXC SHOULDER CLAY DEEP < 5 CM (06/12/18) HT MUSCLE IMAGE SPECT MULT (08/03/18) TISSUE EXAM BY PATHOLOGIST (06/12/18) US EXAM CHEST (04/10/18) X-RAY EXAM KNEE 4 OR MORE (07/13/18) X-RAY EXAM OF SHOULDER (03/30/18)
--- NOTE | 2018-08-21 15:46 | CR ---
EXAMINATION: Left knee HISTORY: TKA COMPARISON: 07/13/2018 TECHNIQUE: 2 views FINDINGS/IMPRESSION: Left total knee revision hardware is noted in good position and alignment. Postoperative soft tissue changes are present.
[2018-08-21] MEDS: oxyCODONE 5 MG Tab PO PRN ×2 (15:56→20:49)
[2018-08-21] MEDS ORDERED: metFORMIN 500 MG Tab PO SCH (17:00)
[2018-08-21] MEDS ORDERED: Insulin Aspart 100 Units/ML 3 ML Pen SUBCUT SCH (17:00)
[2018-08-21] MEDS: ceFAZolin 2 GM in Premix Bag 1 BAG IV SCH (17:35)
--- NOTE | 2018-08-21 18:22 | OR ---
SURGEON: Micaela Lala MD DATE OF PROCEDURE: 08/21/2018 PREOPERATIVE DIAGNOSIS: Painful left medial unicompartmental knee arthroplasty. POSTOPERATIVE DIAGNOSIS: Painful left medial unicompartmental knee arthroplasty. PROCEDURE: Revision of left total knee arthroplasty. INVENTORY SPECIALIST MANAGER: Amy Collado PA-C and PRETTY Moura. ANESTHESIA: Spinal with sedation. ESTIMATED BLOOD LOSS: 50 mL. TOURNIQUET TIME: See nursing record. COMPLICATIONS: None. DEEP VENOUS THROMBOSIS PROPHYLAXIS: PAS boot and MOSES hose to the nonoperative leg. IMPLANTS USED: Sharron NexGen femoral component size F (LPS), tibial component size 6 with 5 mm medial augment and a 30 mm stem extension, 38 mm all-polyethylene patella, and 10 mm all polyethylene articular surface. INTRAOPERATIVE FINDINGS: Showed loosening of the femoral component. I was able to remove the femoral component without difficulty. Osteophyte formation was noted around the femoral component. The tibial component appeared to be well fixed and was removed with minimal bone loss using osteotomes. ACL and PCL were intact. Grade 4 degenerative changes were noted within the lateral compartment as well as the patellofemoral compartment. BRIEF HISTORY: David is a 62-year-old male who has previously undergone a left knee medial unicompartmental arthroplasty at an outlying facility. He has continued to have pain in his knee since that time. He did have synovial studies done to rule out infection. These were negative. Due to his lack of response to conservative treatment, I did recommend surgical intervention. The risks and goals of procedure were discussed with the patient and were documented preoperatively. He agreed to proceed. PROCEDURE: The patient was properly identified and brought to the operating room. The patient was transferred from the operating room cart and placed on the operating room table. Spinal anesthesia was administered by the anesthesia team. After adequate sedation was achieved, a well-padded tourniquet was applied to the lower extremity. A Louie catheter was then placed. The lower extremity was then prepped in standard fashion using ChloraPrep solution. It was then sterilely draped. A time-out was performed to ensure correct site and procedure. Preoperative antibiotics were given along with one gram of tranexamic acid IV. The surgical site had been marked preoperatively. An Esmarch was used to exsanguinate the lower extremity and the tourniquet was inflated. An incision was made centered over the anterior aspect of the knee. The subcutaneous tissues were dissected down to the level of the fascia. A medial parapatellar approach was made. A partial medial release was also performed. The knee was then brought into extension and a portion of the infrapatellar fat pad was excised. The knee was then brought into flexion. The femoral patient specific cutting block was placed. This fit anatomically. The pins were then placed. The 0 degree distal femoral cutting guide was placed over the distal femur pins. The femur was then resected using an oscillating saw. The pins were then removed and were placed into the previously placed distal drill holes in the femoral condyles. Both Nocatee's and the epicondylar axis were marked with electric cautery. The cutting block was then placed. This was pinned into position in a slightly lateral and externally rotated position. This was then secured. The resection guide was used to check to make sure that the anterior femoral cortex would not be notched. The anterior condylar cut was then made. No notching of the femur was noted. This was followed by the posterior condylar, posterior chamfer, and anterior chamfer cuts. The narrow reciprocating saw was then used to cut the base of the trochlear recess and score the edges. The finishing guide was then removed and the trochlear recess cuts and remaining bone cuts were finished. The notch cutting block was then placed into position and the notch cut was made without difficulty using the reciprocating saw. This was then removed. The notch block that had been cut along with a portion of the cruciate ligaments were also resected. We then turned our attention to the tibia. The posterior cruciate ligament retractor was used to bring the tibial surface anteriorly. The patient specific tibial block was then placed. This fit anatomically. It was pinned into position. The block was then removed. The 0 degree proximal tibia cutting guide was then placed over the guide pin. This was secured with a May clamp. The resection depth was checked using the resection guide. A proximal tibia cut was then made using an oscillating saw. Care was taken to protect the patellar tendon. The proximal tibia bone was then removed. The remainder of the medial and lateral meniscus were also excised. Care was taken to protect the popliteus tendon. The proximal tibia was then sized. The remainder of the osteophytes along the proximal tibia were also resected. The distal femur was elevated to expose the posterior knee. The posterior capsule was stripped off of the distal femur using a curved osteotome. The posterior osteophytes were also excised. The posterior capsule, along with the medial and lateral gutters, were then injected with the standard, preoperatively prepared, mixture consisting of clonidine, epinephrine, ropivacaine, Toradol, and saline, unless any allergies were noted preoperatively. The femoral trial was then placed. This was followed by the tibial component with a size 10 trial polyethylene. The knee was brought into full extension. Stability to varus and valgus stress was checked in extension and in flexion. There appeared to be good range of motion and stability. The knee was then brought into full extension. The patella was everted. The patella was resected to a thickness of 15 millimeters. It was then sized. Once the appropriate size was determined, the patella was prepared by placing the patella button in a slightly superior and medial position. The patella button trial was then placed and the knee was again taken through a range of motion. There was excellent patellar tracking using the no-touch technique. Alignment was checked with a drop kenn. The trial components were then removed. The knee was brought into full flexion and the tibia was prepared in a standard fashion placing the tibial plate in slight external rotation with the center of the prosthesis lined up with the medial aspect of the tibial tubercle. The wound was then copiously irrigated with Pulsavac solution to remove any bony debris. The bone ends were then suctioned dry. Cement was prepared in the usual fashion on the back table. The cement was then placed onto the proximal tibia and the tibial component was placed without difficulty. This was malleted into position. Excess cement was cleared. The femoral component was cemented in a similar manner. A trial polyethylene was then placed and the knee was brought into full extension. An axial load was applied. The patella button was then cemented into place and a patella clamp was placed to hold pressure. The cement was allowed to cure. The wound was again copiously irrigated with saline solution using a Pulsavac sewing teacher. Following this 1 g of tranexamic acid was applied to the wound topically. After the cement had adequately hardened, the patella clamp was released. The knee was again taken through a range of motion. It was determined at this time the correct thickness of polyethylene. The trial polyethylene insert was then removed. The knee was brought into flexion and the tibial tray was suctioned dry. Any excess cement was cleared from the tibial and femoral components. The knee was then brought into approximately 45 degrees of flexion. The tourniquet was deflated. No excess bleeding was noted from the posterior aspect of the knee. An additional gram of tranexamic acid was given IV. The previously determined sized polyethylene insert was then placed and locked into position without difficulty. The knee was again taken through a range of motion with no change in stability, either in flexion or extension. The fascia layer was closed with No. 1 Vicryl. The subcutaneous tissue was closed with 2-0 Vicryl and the skin was closed with a angela. Xeroform gauze was placed over the wound and a bulky dressing was applied. The patient was then awakened from the anesthetic and transferred back to the operating cart. The patient was brought to recovery room in stable condition. All needle and sponge counts were correct. EFRAIN / KATELYNN /[id number] MTDD
[2018-08-21] MEDS ORDERED: Metoprolol Succinate 50 MG Tab.ER PO SCH (21:00)
[2018-08-22] MEDS: Acetaminophen 1,000 MG in Premix Bag 1 BAG IV SCH (01:42)
[2018-08-22] MEDS: oxyCODONE 5 MG Tab PO PRN (02:00)
[2018-08-22] MEDS: ceFAZolin 2 GM in Premix Bag 1 BAG IV SCH (02:01)
[2018-08-22] MEDS: Acetaminophen/oxyCODONE 325-5 MG Tab PO PRN ×3 (05:37→13:38)
[2018-08-22] MEDS ORDERED: Morphine 2 MG/ML Syringe IVPUSH PRN (06:00)
[2018-08-22] MEDS ORDERED: Thyroid 60 MG Tab PO SCH (07:30)
--- NOTE | 2018-08-22 08:29 | PCM.SURGPN ---
- General Info Date of Service: 08/22/18 Date of Surgery/Procedure: 08/21/18 POD#: 1 Functional Status: Reports: Tolerating Diet, Ambulating, Urinating - Review of Systems General: Reports: No Symptoms Pulmonary: Reports: No Symptoms Cardiovascular: Reports: No Symptoms Gastrointestinal: Reports: No Symptoms Musculoskeletal: Reports: Leg Pain Systems Review Comment:: pt up to chair for breakfast tolerating PO intake pain under better control now - increase with activity and through night no specific concerns today would like to go home today after PT - Patient Data Vitals - Most Recent: Last Vital Signs Temp 98.6 F 08/22/18 07:06 Pulse 90 08/22/18 07:06 Resp 16 08/22/18 07:06 BP 132/81 08/22/18 08:11 Pulse Ox 95 08/22/18 07:06 Weight - Most Recent: 99.79 kg I&O - Last 24 Hours: Intake & Output 08/21/18 08/22/18 08/22/18 22:59 06:59 14:59 Intake Total 1162 750 Output Total 525 1200 Balance 637 -450 Lab Results Last 24 Hrs: Laboratory Results - last 24 hr 08/21/18 08/21/18 08/21/18 Range/Units 08:08 13:08 13:08 WBC 5.93 (4.0-11.0) K/uL RBC 5.38 (4.50-5.90) M/uL Hgb 17.2 H (13.0-17.0) g/dL Hct 51.9 H (38.0-50.0) % MCV 96.5 (80.0-98.0) fL MCH 32.0 (27.0-32.0) pg MCHC 33.1 (31.0-37.0) g/dL RDW Std Deviation 46.2 (28.0-62.0) fl RDW Coeff of Nina 13 (11.0-15.0) % Plt Count 165 (150-400) K/uL MPV 10.40 (7.40-12.00) fL Neut % (Auto) 54.4 (48.0-80.0) % Lymph % (Auto) 35.2 (16.0-40.0) % Harvey % (Auto) 9.3 (0.0-15.0) % Eos % (Auto) 0.8 (0.0-7.0) % Baso % (Auto) 0.3 (0.0-1.5) % Neut # (Auto) 3.2 (1.4-5.7) K/uL Lymph # (Auto) 2.1 (0.6-2.4) K/uL Harvey # (Auto) 0.6 (0.0-0.8) K/uL Eos # (Auto) 0.1 (0.0-0.7) K/uL Baso # (Auto) 0.0 (0.0-0.1) K/uL Nucleated RBC % 0.0 /100WBC Nucleated RBCs # 0 K/uL Sodium 139 (136-148) mmol/L Potassium 4.6 (3.5-5.1) mmol/L Chloride 104 (98-107) mmol/L Carbon Dioxide 31.4 (21.0-32.0) mmol/L BUN 14 (7.0-18.0) mg/dL Creatinine 1.4 H (0.8-1.3) mg/dL Est Cr Clr Drug Dosing 56.11 mL/min Estimated GFR (MDRD) 51.7 ml/min Glucose 107 H (74-106) mg/dL Calcium 8.2 L (8.5-10.1) mg/dL Blood Type A POSITIVE Antibody Screen NEGATIVE 08/22/18 08/22/18 Range/Units 05:05 05:05 WBC (4.0-11.0) K/uL RBC (4.50-5.90) M/uL Hgb 15.9 (13.0-17.0) g/dL Hct 49.5 (38.0-50.0) % MCV (80.0-98.0) fL MCH (27.0-32.0) pg MCHC (31.0-37.0) g/dL RDW Std Deviation (28.0-62.0) fl RDW Coeff of Nina (11.0-15.0) % Plt Count (150-400) K/uL MPV (7.40-12.00) fL Neut % (Auto) (48.0-80.0) % Lymph % (Auto) (16.0-40.0) % Harvey % (Auto) (0.0-15.0) % Eos % (Auto) (0.0-7.0) % Baso % (Auto) (0.0-1.5) % Neut # (Auto) (1.4-5.7) K/uL Lymph # (Auto) (0.6-2.4) K/uL Harvey # (Auto) (0.0-0.8) K/uL Eos # (Auto) (0.0-0.7) K/uL Baso # (Auto) (0.0-0.1) K/uL Nucleated RBC % /100WBC Nucleated RBCs # K/uL Sodium 139 (136-148) mmol/L Potassium 5.1 (3.5-5.1) mmol/L Chloride 103 (98-107) mmol/L Carbon Dioxide 31.1 (21.0-32.0) mmol/L BUN 12 (7.0-18.0) mg/dL Creatinine 1.5 H (0.8-1.3) mg/dL Est Cr Clr Drug Dosing 52.37 mL/min Estimated GFR (MDRD) 47.7 ml/min Glucose 119 H (74-106) mg/dL Calcium 8.5 (8.5-10.1) mg/dL Blood Type Antibody Screen Med Orders - Current: Current Medications Al Hydroxide/Mg Hydroxide (Mag-Al Plus) 30 ml PO Q4H PRN PRN Reason: Indigestion Anastrozole (Arimidex) 1 mg PO Q14D [facility] Last Admin: 08/21/18 16:08 Dose: Not Given Aspirin (Aspirin) 325 mg PO BID [facility] Last Admin: 08/22/18 08:10 Dose: 325 mg Bisacodyl (Dulcolax) 10 mg RECTAL DAILY PRN PRN Reason: Constipation Diphenhydramine HCl (Benadryl) 25 - 50 mg PO Q6H PRN PRN Reason: Itching Docusate Sodium (Colace) 100 mg PO BID PRN PRN Reason: Constipation Famotidine (Pepcid) 40 mg PO DAILY [facility] Last Admin: 08/22/18 08:10 Dose: 40 mg Hydrochlorothiazide (Hydrochlorothiazide) 12.5 mg PO DAILY [facility] Last Admin: 08/22/18 08:10 Dose: 12.5 mg Lactated Ringer's (Ringers, Lactated) 1,000 mls @ 100 mls/hr IV ASDIRECTED [facility] Last Admin: 08/21/18 23:54 Dose: 100 mls/hr Losartan Potassium (Cozaar) 100 mg PO DAILY [facility] Last Admin: 08/22/18 08:11 Dose: 100 mg Metoprolol Succinate (Toprol Xl) 50 mg PO BEDTIME [facility] Last Admin: 08/21/18 20:50 Dose: 50 mg Morphine Sulfate (Morphine) 1 - 3 mg IVPUSH Q3H PRN PRN Reason: Pain Ondansetron HCl (Zofran) 4 mg IVPUSH Q6H PRN PRN Reason: Nausea/Vomiting Oxycodone/Acetaminophen (Percocet 325-5 Mg) 1 - 2 tab PO Q4H PRN PRN Reason: Pain Last Admin: 08/22/18 05:37 Dose: 2 tab Lutein [Lutein] 20 (Mg) 1 each PO DAILY [facility] Last Admin: 08/22/18 08:15 Dose: Not Given Thyroid 60 Mg Tab 1 each PO ACBREAKFAST [facility] Last Admin: 08/22/18 07:24 Dose: 1 each Polyethylene Glycol (Miralax) 17 gm PO DAILY [facility] Last Admin: 08/22/18 08:14 Dose: Not Given Scopolamine (Transderm-Scop) 1.5 mg TRDERM ONARRIVE [facility] Last Admin: 08/21/18 08:21 Dose: 1.5 mg Sodium Chloride (Saline Flush) 10 ml FLUSH ASDIRECTED PRN PRN Reason: Keep Vein Open Sodium Chloride (Saline Flush) 2.5 ml FLUSH ASDIRECTED PRN PRN Reason: Keep Vein Open Testosterone Cypionate (Depo-Testosterone) 200 mg IM Q72H [facility] Discontinued Medications Albuterol (Proventil Neb Soln) 2.5 mg NEB ONETIME PRN PRN Reason: Wheezing Atropine Sulfate (Atropine 0.1 Mg/Ml) 0.5 mg IVPUSH ASDIRECTED PRN PRN Reason: Hypo-perfusion Atropine Sulfate (Atropine 0.1 Mg/Ml) 1 mg IVPUSH ASDIRECTED PRN PRN Reason: Hypo-Perfusion Cefazolin Sodium/Dextrose (Ancef) Confirm Administered Dose 2 gm IV .STK-MED ONE Stop: 08/21/18 09:13 Dextrose/Water (Dextrose 50% In Water) 50 ml IVPUSH ASDIRECTED PRN PRN Reason: Hypoglycemia Ephedrine Sulfate (Ephedrine Sulfate) Confirm Administered Dose 50 mg .ROUTE .STK-MED ONE Stop: 08/21/18 10:26 Epinephrine HCl (Epinephrine 1:10,000) 1 mg IVPUSH ASDIRECTED PRN PRN Reason: ACLS Guidelines Famotidine (Pepcid) 40 mg IVPUSH ONARRIVE [facility] Last Admin: 08/21/18 08:25 Dose: 40 mg Fentanyl (Sublimaze) Confirm Administered Dose 100 mcg .ROUTE .STK-MED ONE Stop: 08/21/18 09:13 Fentanyl (Sublimaze) 50 - 100 mcg IVPUSH Q5M PRN PRN Reason: Pain Acetaminophen 1,000 mg/ Premix 100 mls @ 400 mls/hr IV ONARRIVE [facility] Last Admin: 08/21/18 14:07 Dose: 400 mls/hr Cefazolin Sodium/Dextrose 2 gm (/ Premix) 50 mls @ 100 mls/hr IV ONCALL [facility] Ropivacaine 49.25 ml/Ketorolac Tromethamine 30 mg/Epinephrine HCl 0.5 mg/ Clonidine HCl 80 mcg/ Sodium Chloride 100 mls @ 50 mls/sec INJECT ASDIRECTED [facility] Tranexamic Acid 2,000 mg/ (Sodium Chloride) 120 mls @ 600 mls/hr IV ASDIRECTED ONE Stop: 08/21/18 06:11 Last Admin: 08/21/18 20:14 Dose: Not Given Lidocaine HCl (Xylocaine-Mpf 1%) Confirm Administered Dose 5 mls @ as directed .ROUTE .STK-MED ONE Stop: 08/21/18 09:47 Acetaminophen 1,000 mg/ Premix 100 mls @ 400 mls/hr IV Q6H [facility] Stop: 08/22/18 02:14 Last Admin: 08/22/18 01:42 Dose: 400 mls/hr Cefazolin Sodium/Dextrose 2 gm (/ Premix) 50 mls @ 100 mls/hr IV Q8H [facility] Stop: 08/22/18 02:29 Last Admin: 08/22/18 02:01 Dose: 100 mls/hr Insulin Aspart (Novolog) 0 unit SUBCUT TIDAC [facility]; Protocol Metformin HCl (Glucophage) 500 mg PO BIDMEALS [facility] Midazolam HCl (Versed 1 Mg/Ml) Confirm Administered Dose 2 mg .ROUTE .STK-MED ONE Stop: 08/21/18 09:59 Morphine Sulfate (Morphine [employer] 30 Mg In 30 Ml) 30 mg IV ASDIRECTED PRN; Protocol PRN Reason: Pain Stop: 08/22/18 06:00 Last Admin: 08/21/18 12:29 Dose: 30 mg Naloxone HCl (Narcan) 0.1 mg IVPUSH ASDIRECTED PRN PRN Reason: Respiratory Depression Ondansetron HCl (Zofran) Confirm Administered Dose 4 mg .ROUTE .STK-MED ONE Stop: 08/21/18 10:38 Oxycodone HCl (Oxycodone) 5 - 10 mg PO Q4H PRN PRN Reason: Pain Stop: 08/22/18 06:00 Last Admin: 08/22/18 02:00 Dose: 10 mg Phenylephrine HCl (Phenylephrine In Ns 100 Mcg/Ml) Confirm Administered Dose 1 mg .ROUTE .STK-MED ONE Stop: 08/21/18 10:11 Propofol (Diprivan 20 Ml) Confirm Administered Dose 600 mg .ROUTE .STK-MED ONE Stop: 08/21/18 09:13 Propofol (Diprivan 20 Ml) Confirm Administered Dose 200 mg .ROUTE .STK-MED ONE Stop: 08/21/18 09:59 Propofol (Diprivan 20 Ml) Confirm Administered Dose 200 mg .ROUTE .STK-MED ONE Stop: 08/21/18 11:28 Tranexamic Acid (Cyklokapron) Confirm Administered Dose 2,000 mg .ROUTE .STK- MED ONE Stop: 08/21/18 08:43 - Exam Wound/Incisions: Dressing Dry and Intact. No: Drainage, Erythema General: Alert, Oriented Cardiovascular: Regular Rate, Regular Rhythm Extremities: Other (exam LLE - at/ehl/gastroc 5/5, dp 2+, sensation intact distally) Physical Findings Comment:: vss, afeb hgb 15.9 uo 2300mL - Problem List Review Problem List Initiated/Reviewed/Updated: Yes - My Orders Last 24 Hours: Active Orders 24 hr Category Date Time Status Blood Glucose Check, Bedside [RC] TIDAC Care 08/21/18 11:56 Inactive Communication Order [RC] PRN Care 08/21/18 11:39 Active Communication Order [RC] PRN Care 08/21/18 11:39 Active Insert Urinary Catheter [OM.PC] Q24H Care 08/21/18 08:00 Ordered Neurovascular Check [RC] Q2HR Care 08/21/18 11:39 Active Notify Provider Consults [RC] ASDIRECTED Care 08/21/18 11:47 Active Notify Provider Vital Signs [RC] ASDIRECTED Care 08/21/18 11:06 Active Notify Provider Vital Signs [RC] ASDIRECTED Care 08/21/18 11:39 Active Oxygen Therapy [RC] PRN Care 08/21/18 11:06 Active RT Incentive Spirometry [RC] Q1HWA Care 08/21/18 11:39 Active Urinary Catheter Removal [RC] ASDIRECTED Care 08/22/18 06:00 Active Vital Signs [RC] Q4H Care 08/21/18 11:39 Active Vital Signs [RC] Q5M Care 08/21/18 11:06 Inactive Wound Care [RC] DAILY Care 08/21/18 11:39 Active Consult to Physician [CONS] Routine Cons 08/21/18 11:47 Active PT Evaluation and Treatment [CONS] Routine Cons 08/21/18 11:39 Active HEMOGLOBIN/HEMATOCRIT,HH [HEME] DAILY Lab 08/23/18 06:00 Ordered Acetaminophen/oxyCODONE [Percocet 325-5 MG] Med 08/22/18 06:00 Active 1 - 2 tab PO Q4H PRN Alum Hydrox/Mag Hydrox/Simeth [Mag-Al Plus] Med 08/21/18 11:38 Active 30 ml PO Q4H PRN Anastrozole [Arimidex] Med 08/21/18 11:45 Active 1 mg PO Q14D Aspirin Med 08/22/18 09:00 Active 325 mg PO BID Bisacodyl [Dulcolax] Med 08/21/18 11:38 Active 10 mg RECTAL DAILY PRN Docusate Sodium [Colace] Med 08/21/18 11:38 Active 100 mg PO BID PRN Famotidine [Pepcid] Med 08/22/18 09:00 Active 40 mg PO DAILY Losartan [Cozaar] Med 08/22/18 09:00 Active 100 mg PO DAILY Metoprolol Succinate [Toprol XL] Med 08/21/18 21:00 Active 50 mg PO BEDTIME Morphine Med 08/22/18 06:00 Active 1 - 3 mg IVPUSH Q3H PRN Ondansetron [Zofran] Med 08/21/18 11:38 Active 4 mg IVPUSH Q6H PRN Patient's Own Medication [Ptom] Med 08/22/18 07:30 Active 1 each PO ACBREAKFAST Patient's Own Medication [Ptom] Med 08/22/18 09:00 Active 1 each PO DAILY Polyethylene Glycol 3350 [MiraLAX] Med 08/22/18 09:00 Active 17 gm PO DAILY Sodium Chloride 0.9% [Saline Flush] Med 08/21/18 11:41 Active 10 ml FLUSH ASDIRECTED PRN Sodium Chloride 0.9% [Saline Flush] Med 08/21/18 11:41 Active 2.5 ml FLUSH ASDIRECTED PRN Testosterone Cypionate [Depo-Testosterone] Med 08/23/18 11:45 Active 200 mg IM Q72H diphenhydrAMINE [Benadryl] Med 08/21/18 11:38 Active 25 - 50 mg PO Q6H PRN hydroCHLOROthiazide Med 08/22/18 09:00 Active 12.5 mg PO DAILY Convert IV to Saline Lock [OM.PC] PRN Ot 08/22/18 06:00 Ordered Ice Therapy [OM.PC] Routine Oth 08/21/18 11:39 Ordered Sequential Compression Device [OM.PC] Routine Oth 08/21/18 08:00 Ordered Medication Orders Al Hydroxide/Mg Hydroxide (Mag-Al Plus) 30 ml PO Q4H PRN PRN Reason: Indigestion Anastrozole (Arimidex) 1 mg PO Q14D [facility] Last Admin: 08/21/18 16:08 Dose: Aspirin (Aspirin) 325 mg PO BID [facility] Last Admin: 08/22/18 08:10 Dose: 325 mg Bisacodyl (Dulcolax) 10 mg RECTAL DAILY PRN PRN Reason: Constipation Diphenhydramine HCl (Benadryl) 25 - 50 mg PO Q6H PRN PRN Reason: Itching Docusate Sodium (Colace) 100 mg PO BID PRN PRN Reason: Constipation Famotidine (Pepcid) 40 mg PO DAILY [facility] Last Admin: 08/22/18 08:10 Dose: 40 mg Hydrochlorothiazide (Hydrochlorothiazide) 12.5 mg PO DAILY [facility] Last Admin: 08/22/18 08:10 Dose: 12.5 mg Lactated Ringer's (Ringers, Lactated) 1,000 mls @ 100 mls/hr IV ASDIRECTED [facility] Last Admin: 08/21/18 23:54 Dose: 100 mls/hr Infusion: 08/21/18 23:39 Dose: 100 mls/hr Admin: 08/21/18 13:39 Dose: 100 mls/hr Infusion: 08/21/18 13:39 Dose: 100 mls/hr Admin: 08/21/18 08:00 Dose: 100 mls/hr Losartan Potassium (Cozaar) 100 mg PO DAILY [facility] Last Admin: 08/22/18 08:11 Dose: 100 mg Metoprolol Succinate (Toprol Xl) 50 mg PO BEDTIME [facility] Last Admin: 08/21/18 20:50 Dose: 50 mg Morphine Sulfate (Morphine) 1 - 3 mg IVPUSH Q3H PRN PRN Reason: Pain Ondansetron HCl (Zofran) 4 mg IVPUSH Q6H PRN PRN Reason: Nausea/Vomiting Oxycodone/Acetaminophen (Percocet 325-5 Mg) 1 - 2 tab PO Q4H PRN PRN Reason: Pain Last Admin: 08/22/18 05:37 Dose: 2 tab Lutein [Lutein] 20 (Mg) 1 each PO DAILY [facility] Last Admin: 08/22/18 08:15 Dose: Thyroid 60 Mg Tab 1 each PO ACBREAKFAST [facility] Last Admin: 08/22/18 07:24 Dose: 1 each Polyethylene Glycol (Miralax) 17 gm PO DAILY [facility] Last Admin: 08/22/18 08:14 Dose: Not Given Scopolamine (Transderm-Scop) 1.5 mg TRDERM ONARRIVE [facility] Last Admin: 08/21/18 08:21 Dose: 1.5 mg Sodium Chloride (Saline Flush) 10 ml FLUSH ASDIRECTED PRN PRN Reason: Keep Vein Open Sodium Chloride (Saline Flush) 2.5 ml FLUSH ASDIRECTED PRN PRN Reason: Keep Vein Open Testosterone Cypionate (Depo-Testosterone) 200 mg IM Q72H [facility] - Assessment Assessment (Free Text/Narrative):: POD#1 revision L TKA - Plan Plan (Free Text/Narrative):: DC IV fluids - saline lock IV DC payne DC [employer] - morphine IV prn breakthrough pain DC oxycodone - percocet 5/325 prn available ASA 325mg PO BID as DVT prophylaxis will change dressing to aquacel prior to d/ch d/ch criteria discussed - pain control, mobilization, PO intake PT today pt has wheeled walker or script has been written anticipate up to 72 hour stay for IV pain medication and continued physical therapy pt will require FWW for safe mobility/stability until increased strength/gait independence s/p TKA - has been safely mobilizing in room with FWW. d/ch medications written
[2018-08-22] MEDS ORDERED: Aspirin 325 MG Tab PO SCH (09:00)
[2018-08-22] MEDS ORDERED: Polyethylene Glycol 3350 Powder 17 GM Packet PO SCH (09:00)
[2018-08-22] MEDS ORDERED: Losartan 50 MG Tab PO SCH (09:00)
[2018-08-22] MEDS ORDERED: Lutein [Lutein] 20 MG PO SCH (09:00)
[2018-08-22] MEDS ORDERED: Hydrochlorothiazide 12.5 MG Cap PO SCH (09:00)
[2018-08-22] MEDS ORDERED: Famotidine 20 MG Tab PO SCH (09:00)
--- NOTE | 2018-08-22 10:44 | PCM.CONSN ---
- General Info Date of Service: 08/22/18 Admission Dx/Problem (Free Text): Admission Diagnosis/Problem Admission Diagnosis/Problem Knee pain Subjective Update: Sitting up in chair, doing well this morning. No other complaints. No chest pain or SOB. Mild knee pain, but pain medications are helping. Functional Status: Reports: Pain Controlled, Tolerating Diet, Ambulating - Review of Systems General: Reports: No Symptoms. Denies: Fever, Weakness HEENT: Reports: No Symptoms. Denies: Headaches, Sore Throat Pulmonary: Reports: No Symptoms. Denies: Shortness of Breath Cardiovascular: Reports: No Symptoms. Denies: Chest Pain Gastrointestinal: Reports: No Symptoms. Denies: Abdominal Pain, Nausea, Vomiting Genitourinary: Reports: No Symptoms. Denies: Frequency Musculoskeletal: Reports: No Symptoms Neurological: Reports: No Symptoms Psychiatric: Reports: No Symptoms - Patient Data Vitals - Most Recent: Last Vital Signs Temp 98.6 F 08/22/18 07:06 Pulse 90 08/22/18 07:06 Resp 16 08/22/18 07:06 BP 132/81 08/22/18 08:11 Pulse Ox 95 08/22/18 07:06 Weight - Most Recent: 99.79 kg I&O - Last 24 Hours: Intake & Output 08/21/18 08/22/18 08/22/18 22:59 06:59 14:59 Intake Total 1162 750 Output Total 525 1200 Balance 637 -450 Lab Results Last 24 Hours: Laboratory Results - last 24 hr 08/21/18 08/21/18 08/22/18 Range/Units 13:08 13:08 05:05 WBC 5.93 (4.0-11.0) K/uL RBC 5.38 (4.50-5.90) M/uL Hgb 17.2 H 15.9 (13.0-17.0) g/dL Hct 51.9 H 49.5 (38.0-50.0) % MCV 96.5 (80.0-98.0) fL MCH 32.0 (27.0-32.0) pg MCHC 33.1 (31.0-37.0) g/dL RDW Std Deviation 46.2 (28.0-62.0) fl RDW Coeff of Nina 13 (11.0-15.0) % Plt Count 165 (150-400) K/uL MPV 10.40 (7.40-12.00) fL Neut % (Auto) 54.4 (48.0-80.0) % Lymph % (Auto) 35.2 (16.0-40.0) % Garland % (Auto) 9.3 (0.0-15.0) % Eos % (Auto) 0.8 (0.0-7.0) % Baso % (Auto) 0.3 (0.0-1.5) % Neut # (Auto) 3.2 (1.4-5.7) K/uL Lymph # (Auto) 2.1 (0.6-2.4) K/uL Garland # (Auto) 0.6 (0.0-0.8) K/uL Eos # (Auto) 0.1 (0.0-0.7) K/uL Baso # (Auto) 0.0 (0.0-0.1) K/uL Nucleated RBC % 0.0 /100WBC Nucleated RBCs # 0 K/uL Sodium 139 (136-148) mmol/L Potassium 4.6 (3.5-5.1) mmol/L Chloride 104 (98-107) mmol/L Carbon Dioxide 31.4 (21.0-32.0) mmol/L BUN 14 (7.0-18.0) mg/dL Creatinine 1.4 H (0.8-1.3) mg/dL Est Cr Clr Drug Dosing 56.11 mL/min Estimated GFR (MDRD) 51.7 ml/min Glucose 107 H (74-106) mg/dL Calcium 8.2 L (8.5-10.1) mg/dL 08/22/18 Range/Units 05:05 WBC (4.0-11.0) K/uL RBC (4.50-5.90) M/uL Hgb (13.0-17.0) g/dL Hct (38.0-50.0) % MCV (80.0-98.0) fL MCH (27.0-32.0) pg MCHC (31.0-37.0) g/dL RDW Std Deviation (28.0-62.0) fl RDW Coeff of Nina (11.0-15.0) % Plt Count (150-400) K/uL MPV (7.40-12.00) fL Neut % (Auto) (48.0-80.0) % Lymph % (Auto) (16.0-40.0) % Garland % (Auto) (0.0-15.0) % Eos % (Auto) (0.0-7.0) % Baso % (Auto) (0.0-1.5) % Neut # (Auto) (1.4-5.7) K/uL Lymph # (Auto) (0.6-2.4) K/uL Garland # (Auto) (0.0-0.8) K/uL Eos # (Auto) (0.0-0.7) K/uL Baso # (Auto) (0.0-0.1) K/uL Nucleated RBC % /100WBC Nucleated RBCs # K/uL Sodium 139 (136-148) mmol/L Potassium 5.1 (3.5-5.1) mmol/L Chloride 103 (98-107) mmol/L Carbon Dioxide 31.1 (21.0-32.0) mmol/L BUN 12 (7.0-18.0) mg/dL Creatinine 1.5 H (0.8-1.3) mg/dL Est Cr Clr Drug Dosing 52.37 mL/min Estimated GFR (MDRD) 47.7 ml/min Glucose 119 H (74-106) mg/dL Calcium 8.5 (8.5-10.1) mg/dL Med Orders - Current: Current Medications Al Hydroxide/Mg Hydroxide (Mag-Al Plus) 30 ml PO Q4H PRN PRN Reason: Indigestion Anastrozole (Arimidex) 1 mg PO Q14D [facility] Last Admin: 08/21/18 16:08 Dose: Not Given Aspirin (Aspirin) 325 mg PO BID [facility] Last Admin: 08/22/18 08:10 Dose: 325 mg Bisacodyl (Dulcolax) 10 mg RECTAL DAILY PRN PRN Reason: Constipation Diphenhydramine HCl (Benadryl) 25 - 50 mg PO Q6H PRN PRN Reason: Itching Docusate Sodium (Colace) 100 mg PO BID PRN PRN Reason: Constipation Famotidine (Pepcid) 40 mg PO DAILY [facility] Last Admin: 08/22/18 08:10 Dose: 40 mg Hydrochlorothiazide (Hydrochlorothiazide) 12.5 mg PO DAILY [facility] Last Admin: 08/22/18 08:10 Dose: 12.5 mg Lactated Ringer's (Ringers, Lactated) 1,000 mls @ 100 mls/hr IV ASDIRECTED [facility] Last Admin: 08/21/18 23:54 Dose: 100 mls/hr Losartan Potassium (Cozaar) 100 mg PO DAILY [facility] Last Admin: 08/22/18 08:11 Dose: 100 mg Metoprolol Succinate (Toprol Xl) 50 mg PO BEDTIME [facility] Last Admin: 08/21/18 20:50 Dose: 50 mg Morphine Sulfate (Morphine) 1 - 3 mg IVPUSH Q3H PRN PRN Reason: Pain Ondansetron HCl (Zofran) 4 mg IVPUSH Q6H PRN PRN Reason: Nausea/Vomiting Oxycodone/Acetaminophen (Percocet 325-5 Mg) 1 - 2 tab PO Q4H PRN PRN Reason: Pain Last Admin: 08/22/18 09:46 Dose: 2 tab Lutein [Lutein] 20 (Mg) 1 each PO DAILY [facility] Last Admin: 08/22/18 08:15 Dose: Not Given Thyroid 60 Mg Tab 1 each PO ACBREAKFAST [facility] Last Admin: 08/22/18 07:24 Dose: 1 each Polyethylene Glycol (Miralax) 17 gm PO DAILY [facility] Last Admin: 08/22/18 08:14 Dose: Not Given Scopolamine (Transderm-Scop) 1.5 mg TRDERM ONARRIVE [facility] Last Admin: 08/21/18 08:21 Dose: 1.5 mg Sodium Chloride (Saline Flush) 10 ml FLUSH ASDIRECTED PRN PRN Reason: Keep Vein Open Sodium Chloride (Saline Flush) 2.5 ml FLUSH ASDIRECTED PRN PRN Reason: Keep Vein Open Testosterone Cypionate (Depo-Testosterone) 200 mg IM Q72H [facility] Discontinued Medications Albuterol (Proventil Neb Soln) 2.5 mg NEB ONETIME PRN PRN Reason: Wheezing Atropine Sulfate (Atropine 0.1 Mg/Ml) 0.5 mg IVPUSH ASDIRECTED PRN PRN Reason: Hypo-perfusion Atropine Sulfate (Atropine 0.1 Mg/Ml) 1 mg IVPUSH ASDIRECTED PRN PRN Reason: Hypo-Perfusion Cefazolin Sodium/Dextrose (Ancef) Confirm Administered Dose 2 gm IV .K-MED ONE Stop: 08/21/18 09:13 Dextrose/Water (Dextrose 50% In Water) 50 ml IVPUSH ASDIRECTED PRN PRN Reason: Hypoglycemia Ephedrine Sulfate (Ephedrine Sulfate) Confirm Administered Dose 50 mg .ROUTE .[facility]-MED ONE Stop: 08/21/18 10:26 Epinephrine HCl (Epinephrine 1:10,000) 1 mg IVPUSH ASDIRECTED PRN PRN Reason: ACLS Guidelines Famotidine (Pepcid) 40 mg IVPUSH ONARRIVE [facility] Last Admin: 08/21/18 08:25 Dose: 40 mg Fentanyl (Sublimaze) Confirm Administered Dose 100 mcg .ROUTE .[facility]-MED ONE Stop: 08/21/18 09:13 Fentanyl (Sublimaze) 50 - 100 mcg IVPUSH Q5M PRN PRN Reason: Pain Acetaminophen 1,000 mg/ Premix 100 mls @ 400 mls/hr IV ONARRIVE [facility] Last Admin: 08/21/18 14:07 Dose: 400 mls/hr Cefazolin Sodium/Dextrose 2 gm (/ Premix) 50 mls @ 100 mls/hr IV ONCALL [facility] Ropivacaine 49.25 ml/Ketorolac Tromethamine 30 mg/Epinephrine HCl 0.5 mg/ Clonidine HCl 80 mcg/ Sodium Chloride 100 mls @ 50 mls/sec INJECT ASDIRECTED [facility] Tranexamic Acid 2,000 mg/ (Sodium Chloride) 120 mls @ 600 mls/hr IV ASDIRECTED ONE Stop: 08/21/18 06:11 Last Admin: 08/21/18 20:14 Dose: Not Given Lidocaine HCl (Xylocaine-Mpf 1%) Confirm Administered Dose 5 mls @ as directed .ROUTE .[facility]-MED ONE Stop: 08/21/18 09:47 Acetaminophen 1,000 mg/ Premix 100 mls @ 400 mls/hr IV Q6H [facility] Stop: 08/22/18 02:14 Last Admin: 08/22/18 01:42 Dose: 400 mls/hr Cefazolin Sodium/Dextrose 2 gm (/ Premix) 50 mls @ 100 mls/hr IV Q8H [facility] Stop: 08/22/18 02:29 Last Admin: 08/22/18 02:01 Dose: 100 mls/hr Insulin Aspart (Novolog) 0 unit SUBCUT TIDAC [facility]; Protocol Metformin HCl (Glucophage) 500 mg PO BIDMEALS [facility] Midazolam HCl (Versed 1 Mg/Ml) Confirm Administered Dose 2 mg .ROUTE .[facility]-MED ONE Stop: 08/21/18 09:59 Morphine Sulfate (Morphine Incinerator Attendant 30 Mg In 30 Ml) 30 mg IV ASDIRECTED PRN; Protocol PRN Reason: Pain Stop: 08/22/18 06:00 Last Admin: 08/21/18 12:29 Dose: 30 mg Naloxone HCl (Narcan) 0.1 mg IVPUSH ASDIRECTED PRN PRN Reason: Respiratory Depression Ondansetron HCl (Zofran) Confirm Administered Dose 4 mg .ROUTE .STK-MED ONE Stop: 08/21/18 10:38 Oxycodone HCl (Oxycodone) 5 - 10 mg PO Q4H PRN PRN Reason: Pain Stop: 08/22/18 06:00 Last Admin: 08/22/18 02:00 Dose: 10 mg Phenylephrine HCl (Phenylephrine In Ns 100 Mcg/Ml) Confirm Administered Dose 1 mg .ROUTE .STK-MED ONE Stop: 08/21/18 10:11 Propofol (Diprivan 20 Ml) Confirm Administered Dose 600 mg .ROUTE .STK-MED ONE Stop: 08/21/18 09:13 Propofol (Diprivan 20 Ml) Confirm Administered Dose 200 mg .ROUTE .STK-MED ONE Stop: 08/21/18 09:59 Propofol (Diprivan 20 Ml) Confirm Administered Dose 200 mg .ROUTE .STK-MED ONE Stop: 08/21/18 11:28 Tranexamic Acid (Cyklokapron) Confirm Administered Dose 2,000 mg .ROUTE .STK- MED ONE Stop: 08/21/18 08:43 - Exam Quality Assessment: Urine Catheter, DVT Prophylaxis. No: Supplemental Oxygen General: Alert, Oriented, Cooperative Lungs: Clear to Auscultation, Normal Respiratory Effort Cardiovascular: Regular Rate, Regular Rhythm, No Murmurs GI/Abdominal Exam: Normal Bowel Sounds, Soft, Non-Tender, No Organomegaly, No Mass Extremities: Normal Inspection, Normal Range of Motion, Pedal Edema (mild non- pitting edema bilaterally) Wound/Incisions: Healing Well, Dressing Dry and Intact (L knee) Neurological: No New Focal Deficit Psy/Mental Status: Alert, Normal Affect, Normal Mood Consult PN Assessment/Plan Procedures: Procedures CARDIOVASCULAR STRESS TEST (08/03/18) EXC BACK LES SC 3 CM/> (03/22/18) EXC SHOULDER CLAY DEEP < 5 CM (06/12/18) HT MUSCLE IMAGE SPECT MULT (08/03/18) TISSUE EXAM BY PATHOLOGIST (06/12/18) US EXAM CHEST (04/10/18) X-RAY EXAM KNEE 4 OR MORE (07/13/18) X-RAY EXAM OF SHOULDER (03/30/18) (1) S/P total knee arthroplasty SNOMED Code(s): 8212051991366, 636554912, 4251956436985 Code(s): Z96.659 - PRESENCE OF UNSPECIFIED ARTIFICIAL KNEE JOINT Current Visit: Yes Qualifiers: Laterality: left Qualified Code(s): Z96.652 - Presence of left artificial knee joint (2) HTN (hypertension) SNOMED Code(s): 35544337 Code(s): I10 - ESSENTIAL (PRIMARY) HYPERTENSION Current Visit: Yes Qualifiers: Hypertension type: essential hypertension Qualified Code(s): I10 - Essential (primary) hypertension Problem List Initiated/Reviewed/Updated: Yes My Orders Last 24 Hours: My Active Orders 08/21/18 11:56 Blood Glucose Check, Bedside [RC] TIDAC Plan: This 62 year old male admitted with L TKA with Dr Lala. Hospitalist consulted for medical management for HTN 1. S/P L TKA: Orders per Orthopedics 2. HTN: Stable. Continue Metoprolol, Losartan and HCTZ. VTE prophylaxis: Would recommend with deemed appropriate by Orthopedics
--- NOTE | 2018-08-22 11:57 | PCM48HPAN ---
Post Anesthesia Note - EVALUATION WITHIN 48HRS OF ANESTHETIC Vital Signs in Normal Range: Yes Patient Participated in Evaluation: Yes Respiratory Function Stable: Yes Airway Patent: Yes Cardiovascular Function Stable: Yes Hydration Status Stable: Yes Pain Control Satisfactory: Yes Nausea and Vomiting Control Satisfactory: Yes Mental Status Recovered: Yes Pulse Rate: 68 Resp Rate: 16 Blood Pressure: 132/81
--- NOTE | 2018-08-22 12:40 | PCM.SN ---
- Free Text/Narrative Note: d/ch summary #[id number]
--- NOTE | 2018-08-23 09:12 | DISCH ---
DATE OF DISCHARGE: 08/22/2018 PRIMARY CARE PHYSICIAN: Paulette Trujillo NP ADMITTING DIAGNOSES: 1. Degenerative joint disease, left knee. 2. Status post left medial unicompartmental knee arthroplasty. OTHER MEDICAL DIAGNOSES: 1. Hypotestosteronism. 2. Hypothyroidism. 3. Hearing loss. DISCHARGE DIAGNOSES: 1. Degenerative joint disease, left knee. 2. Status post left medial unicompartmental knee arthroplasty. 3. Hypotestosteronism. 4. Hypothyroidism. 5. Hearing loss. BRIEF HISTORY: David is a 62-year-old male, who has previously undergone a left medial unicompartmental knee arthroplasty at an outlying facility. He has had continued complaints of pain in his left knee since that time. Infectious/inflammatory workup was done and these were negative. At that time, surgical treatment was recommended. On August 21, 2018, the patient underwent revision left total knee arthroplasty done by Dr. Micaela Lala. This was done under spinal anesthesia with sedation. Estimated blood loss was 50 mL. Please refer back to the nursing record for tourniquet time. Upon completion of the procedure, the patient was transferred to the PACU and subsequently to [facility] for postoperative care. HOSPITAL COURSE: Postoperatively, the patient did well. He received 2 doses of antibiotics for a total of 24 hours of antibiotic coverage. Physical therapy and the hospitalist service followed him through his hospital stay. His pain was controlled with a combination of oral and IV pain medications. Aspirin 325 mg twice daily was started on postoperative day #1 as DVT prophylaxis. His vital signs have been stable. He has been afebrile. His hemoglobin on the morning of August 22 was 15.9. At this time, the patient is doing well. His pain is controlled. He is ambulating with a wheeled walker. He is tolerating oral intake. He feels comfortable with discharge to home. DISCHARGE MEDICATIONS: 1. Percocet 5/325. 2. Colace 100 mg. 3. MiraLAX. 4. Aspirin 325 mg. DISCHARGE INSTRUCTIONS: For complete discharge instructions, please refer back to Dr. Lala's postoperative total knee arthroplasty patient instructions. For complete medication reconciliation, please refer back to the patient's EHR. Should he have questions or concerns prior to followup, he has been advised to contact the clinic. CAREY PACE /[id number]
[2018-08-23] MEDS ORDERED: Testosterone Cypionate 200 MG/ML MDV IM SCH (11:45)
== END 2018-08-22 14:00 | disposition home or self-care (01) | DRG 302 ==
LOC: MW.MS 07:21 → EDSTATUS 12:00
PROVIDERS: ADMIT Orthopaedic Surgery; ATTEND Orthopaedic Surgery
PROC: 0SPD0JZ Removal of Synthetic Substitute from Left Knee Joint, Open Approach (ICD-10-PCS; principal; 2018-08-21)
PROC: 0SRD0J9 Replacement of Left Knee Joint with Synthetic Substitute, Cemented, Open Approach (ICD-10-PCS; principal; 2018-08-21)
DX: T84.84XA Pain due to internal orthopedic prosthetic devices, implants and grafts, initial encounter (principal); T84.033A Mechanical loosening of internal left knee prosthetic joint, initial encounter; Y83.8 Other surgical procedures as the cause of abnormal reaction of the patient, or of later complication, without mention of misadventure at the time of the procedure; I12.9 Hypertensive chronic kidney disease with stage 1 through stage 4 chronic kidney disease, or unspecified chronic kidney disease; N18.3 Chronic kidney disease, stage 3 (moderate); M25.762 Osteophyte, left knee; E03.9 Hypothyroidism, unspecified; I10 Essential (primary) hypertension; E66.9 Obesity, unspecified; Z90.49 Acquired absence of other specified parts of digestive tract; H91.90 Unspecified hearing loss, unspecified ear; Z98.52 Vasectomy status; Z87.891 Personal history of nicotine dependence; Z96.653 Presence of artificial knee joint, bilateral; Z79.82 Long term (current) use of aspirin; Z79.899 Other long term (current) drug therapy; Z68.32 Body mass index [BMI] 32.0-32.9, adult
CPT/HCPCS: 36415; 73560-26-LT; 73560-LT; 80048; 85014; 85018; 85025; 86850; 86900; 86901; 97110-GP; 97161-GP; 97530-GP; A9270-GY; C1713; C1776; J0131; J0171; J0690; J0735; J1885; J2001; J2250; J2274; J2370; J2405; J2704; J2795; J3010; J3490; J7050; J7120